=== PATIENT | female | born 2000 | race Caucasian/White ===

== ENCOUNTER 2022-08-26 14:14 | Emergency (ER) | payer OTHER, SELFPAY ==
[2022-08-26 14:24] VITALS: BP 104/61; PULSE 73; RESP 16; TEMP 36.2; O2SAT 99
--- NOTE | 2022-08-26 15:20 | ED.URI ---
HPI - URI/Sore Throat General Chief Complaint: Upper Respiratory Infection Stated Complaint: Sore Throat Time Seen by Provider: 08/26/22 15:20 Source: patient and RN notes reviewed Mode of arrival: ambulatory Limitations: no limitations History of Present Illness HPI Narrative: 22-year-old female presents concern for ongoing sore throat. Reports she was seen a week ago and tested for strep throat which was negative. She reports she continues to have a right-sided sore throat with swollen tonsils, reports she expressed pus from the tonsil this morning. She reports she was taking cough syrup she was given at the other urgent care without relief. MD elicited complaint: sore throat Related Data Home Medications Medication Instructions Recorded Confirmed bupropion HCl 300 mg 24 hr tablet, mg PO 08/26/22 extended release hydroxyzine pamoate 25 mg capsule mg 08/26/22 lamotrigine 25 mg tablet mg 08/26/22 norethindrone 1 mg-ethinyl tablet 08/26/22 estradiol 10 mcg (24)-iron 10 mcg(2) tablet (Lo Loestrin Fe) spironolactone 50 mg tablet mg 08/26/22 Allergies Allergy/AdvReac Type Severity Reaction Status Date / Time oxcarbazepine Allergy Unknown rash and Unverified 12/06/14 12:16 headache Review of Systems Review of Systems: CONSTITUTIONAL: Reports malaise. Denies chills, sweats, or fever. EYES: Denies visual changes, redness, or discharge. ENT: Denies rhinorrhea, congestion, sinus pain, otalgia. Reports sore throat, swollen tonsil with pus. CARDIOVASCULAR: Denies chest pain, palpitations, or edema. RESPIRATORY: Denies cough. Denies dyspnea. GASTROINTESTINAL: Denies abdominal pain, nausea, vomiting, diarrhea SKIN: Denies rash or itching. MUSCULOSKELETAL: Denies myalgia. NEUROLOGIC: Denies headache. All systems reviewed & are unremarkable except as noted in HPI and below PMFSH Comments At time of signature, agree with nursing past medical, surgical, social and family history. There is no relevant family history pertinent to the presenting complaint Exam Narrative: GENERAL: Well-appearing, well-nourished, and in no acute distress. HEAD: Normocephalic EYES: PERRLA, conjunctivae clear ENT: Nares clear. Mucous membranes moist. TM pearly campuzano with sharp light reflex bilaterally; no tragal tenderness. Oropharynx not erythematous without lesions. Right Tonsils enlarged and without exudate, no drooling, no hoarseness, no trismus, uvula midline. NECK: Supple. No lymphadenopathy CHEST: Clear to auscultation, breath sounds equal. No wheezing, rhonchi, rales, or stridor. No respiratory distress, speaks in full sentences. HEART: Regular rate and rhythm. No murmur heard. SKIN: Warm, dry, no rash. NEURO: Alert and oriented x3. PSYCH: Normal mood and affect Course Course Emergency Course: Patient is aware of diagnosis, understands and agrees to treatment plan. Anticipatory guidance given. Patient agrees to follow-up as directed and is aware of reasons to seek care at the emergency department. Portions of this record may have been created with voice recognition software Level of Care: Express Care Visit Vital Signs Vital signs: Vital Signs Temperature 97.2 F L 08/26/22 14:24 Pulse Rate 73 08/26/22 14:24 Respiratory Rate 16 08/26/22 14:24 Blood Pressure 104/61 08/26/22 14:24 Pulse Oximetry 99 08/26/22 14:24 Oxygen Delivery Room Air 08/26/22 14:24 Temperature 97.2 F L 08/26/22 14:24 Pulse Rate 73 08/26/22 14:24 Respiratory Rate 16 08/26/22 14:24 Blood Pressure 104/61 08/26/22 14:24 Pulse Oximetry 99 08/26/22 14:24 Oxygen Delivery Room Air 08/26/22 14:24 Reviewed. MDM - URI/Sore Throat MDM Narrative Medical decision making narrative: Differential diagnosis considered: Diaz virus, strep pharyngitis, allergic rhinitis, upper respiratory tract infection, sinusitis, rhinosinusitis, nasopharyngitis. viral pharyngitis, otitis media, otitis externa, pneumonia, bronchi
== END 2022-08-26 15:29 | disposition home or self-care (01) ==
PROVIDERS: Emergency Provider Nurse Practitioner
DX: J03.90 Acute tonsillitis, unspecified (principal)
CPT/HCPCS: 99203; G0463